=== PATIENT | male | born 1985 | race Hispanic/Latino ===

== ENCOUNTER 2018-11-13 19:36 | Emergency (ER) | payer OTHER ==
[~2018-11-13] VITALS: Ht 160 cm; Wt 61.2 kg
[2018-11-13] MEDS ORDERED: SODIUM CHLORIDE 0.9% 1000ML 1,000 ML IV STA (20:01)
--- NOTE | 2018-11-13 21:32 | Diagnostic Imaging Report ---
EXAMINATION: CT of the abdomen and pelvis with contrast. TECHNIQUE: Spiral CT images of the abdomen and pelvis were performed from the lung bases to the lesser trochanters after the intravenous administration of 100 cc of Omnipaque 300 and the oral administration of water. Coronal and sagittal reformatted images were obtained. COMPARISON: None. CLINICAL HISTORY:Status post left inguinal hernia repair x2 and right inguinal hernia repair x1, abdominal discomfort for one month DISCUSSION: ABDOMEN/PELVIS: LOWER THORAX:Unremarkable. HEPATOBILIARY: 3 mm calcification in the left hepatic lobe (segment III), likely representing a calcified granuloma. No other focal hepatic lesions. No intra or extrahepatic biliary ductal dilation. GALLBLADDER: No radio-opaque stones or sludge. No wall thickening. SPLEEN: No splenomegaly. PANCREAS: No focal masses or ductal dilatation. ADRENALS: No adrenal nodules. KIDNEYS/URETERS: No hydronephrosis, stones, or solid mass lesions. PELVIC ORGANS/BLADDER: Bladder and prostate are unremarkable. PERITONEUM/RETROPERITONEUM: No free air or fluid. LYMPH NODES: No intra-abdominal, retroperitoneal, pelvic or inguinal lymphadenopathy. VESSELS: The celiac trunk,superior and inferior mesenteric and bilateral renal arteries are patent The portal, superior mesenteric and splenic veins are patent. GI TRACT: No bowel dilation or evidence of obstruction. No pericolonic inflammatory changes. Appendix is not clearly visualized, however, no fat stranding/inflammatory changes are noted in the right lower quadrant. Stomach is unremarkable. BONES AND SOFT TISSUE: No evidence of lytic lesions. Postoperative changes in the inguinal areas bilaterally, with presence of multiple clips posterior to the recti muscles, likely representing a mesh. No inguinal hernia is identified. No abdominal hernia is noted. No free fluid, fluid collections or masses. IMPRESSION: 1. No acute abdominal pelvic abnormalities. No bowel dilation or evidence of obstruction. 2. No evidence of inguinal or abdominal hernia. Postoperative changes consistent with bilateral hernia repairs is noted. No free fluid, fluid collections or masses. Signed by: Dr. Sumeet Sanford M.D. on 11/13/2018 9:28 PM
== END 2018-11-13 21:57 | disposition home or self-care (01) ==
LOC: FSED 19:36
DX: R10.33 Periumbilical pain (principal); R10.12 Left upper quadrant pain
CPT/HCPCS: 74177; 80053; 85025; 99283; J7030

== ENCOUNTER 2019-08-03 00:16 | Emergency (ER) | payer OTHER ==
[~2019-08-03] VITALS: Ht 160 cm; Wt 63.5 kg
--- OUTSIDE RECORDS SUMMARY | 2019-08-03 00:20 | XMS REPORT ---
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 Allergies, Adverse Reactions, Alerts This patient has no known allergies or adverse reactions. Medications This patient has no known medications. Results Test Description Test Time Test Comments Text Results Atomic Results Result Comments CT ABD/PEL WITH CONTRAST-HOPD 2018-11-13 21:23:00 [place] [address] Patient Name: MERNA ASTORGA MR #: [id number] : 1985 Age/Sex: 33/M Req #: [id number] Adm Physician: Ordered by: SAHIL MARTINEZ MD Report #: [id number] Location: [facility] Room/Bed: Procedure: [id number] HOPD/CT ABD/PEL WITH CONTRAST-HOPD Exam Date: 11/13/18 Exam Time: 2039 REPORT STATUS: Signed EXAMINATION: CT of the abdomen and pelvis with contrast. TECHNIQUE: Spiral CT images of the abdomen and pelvis were performed from the lung bases to the lesser trochanters after the intravenous administration of 100 cc of Omnipaque 300 and the oral administration of water. Coronal and sagittal reformatted images were obtained. COMPARISON: None. CLINICAL HISTORY:Status post left inguinal hernia repair x2 and right inguinal hernia repair x1, abdominal discomfort for one month DISCUSSION: ABDOMEN/PELVIS: LOWER THORAX:Unremarkable. HEPATOBILIARY: 3 mm calcification in the left hepatic lobe (segment III), likely representing a calcified granuloma. No other focal hepatic lesions. No intra or extrahepatic biliary ductal dilation. GALLBLADDER: No radio-opaque stones or sludge. No wall thickening. SPLEEN: No splenomegaly. PANCREAS: No focal masses or ductal dilatation. ADRENALS: No adrenal nodules. KIDNEYS/URETERS: No hydronephrosis, stones, or solid mass lesions. PELVIC ORGANS/BLADDER: Bladder and prostate are unremarkable. PERITONEUM/RETROPERITONEUM: No free air or fluid. LYMPH NODES: No intra- abdominal, retroperitoneal, pelvic or inguinal lymphadenopathy. VESSELS: The celiac trunk,superior and inferior mesenteric and bilateral renal arteries are patent The portal, superior mesenteric and splenic veins are patent. GI TRACT: No bowel dilation or evidence of obstruction. No pericolonic inflammatory changes. Appendix is not clearly visualized, however, no fat stranding/inflammatory changes are noted in the right lower quadrant. Stomach is unremarkable. BONES AND SOFT TISSUE: No evidence of lytic lesions. Postoperative changes in the inguinal areas bilaterally, with presence of multiple clips posterior to the recti muscles, likely representing a mesh. No inguinal hernia is identified. No abdominal hernia is noted. No free fluid, fluid collections or masses. IMPRESSION: 1. No acute abdominal pelvic abnormalities. No bowel dilation or evidence of obstruction. 2. No evidence of inguinal or abdominal hernia. Postoperative changes consistent with bilateral hernia repairs is noted. No free fluid, fluid collections or masses. Signed by: Dr. Alvina Sanford M.D. on 11/13/2018 9:28 PM Dictated By: ALVINA SANFORD MD 27 Transcribed By: KEYANNA on 11/13/182127 COPY TO: SAHIL MARTINEZ MD
[2019-08-03] MEDS ORDERED: IOPAMIDOL 370 MG/ML 200 ML INFUS..BTL INJ ONE (01:03)
[2019-08-03] MEDS ORDERED: SODIUM CHLORIDE 0.9% 50ML 50 ML ONE (01:03)
--- NOTE | 2019-08-03 03:19 | Diagnostic Imaging Report ---
History:Headache with activity, Comparison studies:None Technique: Axial images were obtained from the skull base to the vertex. 3-D reconstructions and maximum intensity projection reformats were performed. Coronal and sagittal images reconstructed from the axial data. Intravenous contrast: 100 cc of Omnipaque 300. Dose modulation, iterative reconstruction, and/or weight based adjustment of the mA/kV was utilized to reduce the radiation dose to as low as reasonably achievable. Findings: Scalp/skull: No abnormalities. No fractures, blastic or lytic lesions. Extra-axial spaces: No masses. No fluid collections. Brain sulci: Appropriate for age. Ventricles: Normal in size and configuration. No hydrocephalus. Parenchyma: No abnormal densities. No masses, hemorrhage, acute or chronic cortical vascular insults. Sellar/suprasellar region: No abnormalities Craniocervical junction: Patent foramen magnum. No Chiari one malformation. Right internal carotid artery: Patent. No abnormalities. Left internal carotid artery: Patent. No abnormalities. Normal ACAs and MCAs. Right vertebral artery: Patent. No abnormalities. Left vertebral artery: Patent. No abnormalities. Basilar artery: Patent. No abnormalities. Posterior cerebral arteries: Patent. No abnormalities. Anatomical variants: Acom: Patent . Pcoms: Not well visualized. Vertebral arteries: Codominant . IMPRESSION: 1. Normal CT head and CTA of the [place] Signed by: DR Ernesto Clifton M.D. on 08/03/2019 3:16 AM
[2019-08-03] MEDS ORDERED: FIORICET 50-301 EACH PO (03:25)
[2019-08-03] MEDS ORDERED: NAPROSYN500 MG PO (03:25)
== END 2019-08-03 03:37 | disposition home or self-care (01) ==
LOC: FSED 00:16
DX: G44.84 Primary exertional headache (principal)
CPT/HCPCS: 70496; 80048; 85025; 99284; Q9967

== ENCOUNTER 2019-08-15 05:51 | Emergency (ER) | payer OTHER ==
[~2019-08-15] VITALS: Ht 160 cm; Wt 63.5 kg
[~2019-08-15 05:51] MED LIST: FIORICET 50-301 EACH PO; NAPROSYN500 MG PO
--- NOTE | 2019-08-15 06:51 | Diagnostic Imaging Report ---
EXAMINATION: CXR 2 VIEW - HOPD INDICATION: ^[id number] ^[id number] COMPARISON: None FINDINGS: PA and lateral views TUBES and LINES: None. LUNGS: Lungs are well inflated. There is no evidence of pneumonia or pulmonary edema. PLEURA: No pleural effusion or pneumothorax. HEART AND MEDIASTINUM: The cardiomediastinal silhouette is unremarkable. BONES AND SOFT TISSUES: No acute osseous lesion. Soft tissues are unremarkable. UPPER ABDOMEN: No free air under the diaphragm. IMPRESSION: No acute thoracic abnormality. Signed by: Dr. Nixon Lambert MD on 08/15/2019 6:48 AM
[2019-08-15 07:16] VITALS: BP 123/68
[2019-08-15] MEDS ORDERED: ALPRAZOLAM0.25 M1 PO (07:27)
== END 2019-08-15 07:20 | disposition home or self-care (01) ==
LOC: FSED 05:51
DX: R07.89 Other chest pain (principal); F41.1 Generalized anxiety disorder
CPT/HCPCS: 71046; 93005; 99284